=== PATIENT | female | born 1990 | race Caucasian/White ===

== ENCOUNTER 2024-09-26 17:15 | Outpatient (CLI) | payer OTHER, SELFPAY ==
--- NOTE | 2024-09-26 17:30 | MR_ITS ---
[address] [address] Phone:?[phone] Fax:?[phone] Referring Physician Information: Kobi Meier M.D. [id number] [address] Phone:?[phone] Fax:?[phone] Patient:Torres Suero D.O.B:?1990 Sex:?Female Phone:?[phone] [facility] MRN:?[id number] Exam Date:?09/26/2024 EXAM: MRI of the RIGHT HAND, without contrast CLINICAL INFORMATION: Female, 33 years old, with localized hand pain and swelling. INDICATION: Evaluate for ganglion cyst. PRIOR SURGERY: None reported. PLAIN FILMS: None available. COMPARISONS: No prior MRIs available. TECHNICAL INFORMATION: Using a 1.5T MR scanner and a localizing surface coil: coronals: PD, T2, STIR sagittals: PD, T2 axials: PD, T2 SEDATION: None. CONTRAST: None. FINDINGS: Osseous structures of the right hand included are unremarkable without stress/occult fractures, bone marrow edema or osseous mass. Approximately 7 x 8 x 4 mm volar/ulnar ganglion cyst arising from the 3rd MCP joint (axial T2 series 5 image 46, sagittal T2 series 8 image 39, and coronal STIR series 6 image 11). Mild chondral thinning, irregularity, and reactive osseous changes of the 1st MCP joint. The visualized joints are otherwise abnormal. Collateral capsuloligamentous structures of the joints appear intact. Flexor and extensor tendons are intact, without rupture, tendinopathy, tenosynovitis or longitudinal splitting. Musculature of the hand appears unremarkable without masses, rupture or strain. IMPRESSION: 1. Approximately 7 x 8 x 4 mm volar/ulnar ganglion cyst arising from the 3rd MCP joint. 2. 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 3. No myotendinous abnormality. 4. No ligamentous sprain/tear. 5. No fracture or osseous stress reaction. BC Electronically signed on 09/28/2024 7:47:00 AM by Ravin Frias M.D.
--- NOTE | 2024-09-26 18:15 | MR_ITS ---
[facility] [address] [facility] [address] Phone:?[phone] Fax:?[phone] Referring Physician Information: Kobi Meier M.D. [id number] [address] Phone:?[phone] Fax:?[phone] Patient:Torres Suero D.O.B:?1990 Sex:?Female Phone:?[phone] [facility] MRN:?[id number] Exam Date:?09/26/2024 EXAM: MRI EXAMINATION OF THE RIGHT WRIST WITHOUT CONTRAST CLINICAL INFORMATION: Female, 33 years old, with left hand and wrist pain. INDICATION: Evaluate for cyst. PRIOR SURGERY: None reported. PLAIN FILMS: None available. COMPARISONS: No prior MRIs available. TECHNICAL INFORMATION: Using a 1.5T MR scanner and a localizing surface coil: coronals: PD, T2, STIR sagittals: PD, T2 axials: PD, T2 SEDATION: None CONTRAST: None FINDINGS: Bones and joints: No stress/occult fracture, bone marrow edema, or carpal bone osteonecrosis. Mild chondral thinning and osteophytosis of the 1st CMC joint (coronal PD series 7 image 12). No significant effusion in the distal radioulnar, radiocarpal, midcarpal, or carpometacarpal joint spaces. Triangular fibrocartilage: Abnormal signal and irregularity is present throughout the foveal and ulnar styloid attachments of the TFCC (coronal PD series 7 images 7-9). However, the central disc and radial attachments are unremarkable. Ligaments: No evidence for scapholunate or lunotriquetral interosseous ligament disruption. Interosseous distances between the scaphoid, lunate and triquetrum appear uniform and normal. Alignment:?Type II lunate. The capitolunate angle measures 6? (<30? normal). The scapholunate angle measures 48? (30?-60? normal). Ulnar variance is neutral. Tendons: The flexor tendons are normal in caliber and signal intensity throughout their course including within the carpal tunnel. The tendons within the 1st-6th extensor compartments are intact. No significant tendinopathy, and without tenosynovitis, tendon split or tendon disruption. Neurovascular structures: The median nerve appears normal in caliber and signal intensity throughout its course including within the carpal tunnel. The ulnar nerve is intact and normal in appearance. No evidence for intrinsic/extrinsic mass within Guyon's canal. Soft tissues: Approximately 5 x 6 x 2 mm radial/volar ganglion cyst arising from the radiocarpal joint (sagittal T2 series 8 image 40 and axial PD series 5 image 47). There is also a 10 x 10 x 3 mm dorsal ganglion cyst arising from the midcarpal row (sagittal T2 series 8 image 37 and axial PD series 5 image 49). IMPRESSION: 1. Two ganglion cysts are present: -Dorsal ganglion cyst arising from the midcarpal row measuring 10 x 10 x 3 mm. -Radial/volar ganglion cyst arising from the radiocarpal joint measuring 5 x 6 x 2 mm. 2. Mild 1st CMC joint osteoarthritis. 3. Chronic low-grade sprain of the foveal and ulnar styloid attachments of the TFCC, without TFCC tear. 4. No ligamentous sprain/tear. 5. No fracture or osseous stress reaction. 6. No myotendinous abnormality. BC Electronically signed on 09/28/2024 7:44:00 AM by Ravin Frias M.D.
== END 2024-09-26 17:16 | disposition home or self-care (01) ==
LOC: MRI 17:16
PROVIDERS: Visit Provider Orthopaedic Surgery
DX: R22.30 Localized swelling, mass and lump, unspecified upper limb (principal); M79.642 Pain in left hand; M25.532 Pain in left wrist; M67.432 Ganglion, left wrist; M18.9 Osteoarthritis of first carpometacarpal joint, unspecified; S63.502A Unspecified sprain of left wrist, initial encounter
CPT/HCPCS: 73218; 73221